=== PATIENT | male | born 1930 | race Caucasian/White ===

== ENCOUNTER 2017-05-27 05:31 | Emergency (ER) | payer MEDICARE ==
[2017-05-27] MEDS ORDERED: Ondansetron HCl/PF 4 MG/2 ML Vial ONE ×2 (06:10→09:43)
[2017-05-27 06:18] LABS: #Eosinphils 0.1 thou/uL (0.0-0.7); #Lymphocytes 1.2 thou/uL (1.20-3.40); #Monocytes 0.4 thou/uL (0.11-0.59); #Neutrophils 5.2 thou/uL (1.40-6.50); %Basophils 0.7 % (0.0-1.0); %Eosinophils 1.9 % (0.0-10.0); %Lymphocytes 16.6 % (21.0-51.0); %Monocytes 5.2 % (0.0-10.0); %Neutrophils 75.6 % (42.0-75.0); Hemoglobin 15.3 g/dL (14.0-18.0); Mean Corpuscular HGB CONC 33.4 g/dL (32.0-36.0); Mean Corpuscular Volume 95.8 fl (80.0-94.0); Mean Platelet Volume 6.3 fL (7.4-10.4); Platelet Count 218 thou/uL (130-400); RBC Distribution Width 12.3 % (11.5-14.5); Red Blood Cell (RBC) Count 4.78 mill/uL (4.70-6.10); White Blood Cell (WBC) Count 6.9 thou/uL (4.8-10.8)
[2017-05-27 06:31] LABS: ALT (SGPT) 13 U/L (8-55); AST (SGOT) 18 U/L (5-34); Albumin 4.2 g/dL (3.4-4.8); Alkaline Phosphatase 87 U/L (40-150); Anion Gap 16 mmol/L (10-20); BUN (Urea Nitrogen) 20 mg/dL (8.4-25.7); Bilirubin, Total 0.6 mg/dL (0.2-1.2); Calc. Creatinine Clearance 0 mL/min (70-130); Calcium 9.5 mg/dL (7.8-10.44); Carbon Dioxide 26 mmol/L (23-31); Chloride 103 mmol/L (98-107); Estimated GFR-MDRD 54; Globulin 3.1 g/dL (2.4-3.5); Glucose 141 mg/dL (83-110); Lipase 13 U/L (8-78); Potassium 4.5 mmol/L (3.5-5.1); Protein, Total 7.3 g/dL (5.8-8.1); Sodium 140 mmol/L (136-145)
[2017-05-27 06:39] LABS: Bilirubin Negative (Negative); Blood, Urine Trace (Negative); Clarity Clear (Clear); Glucose, Urine (Dipstick) Negative (Negative); Leukocyte Negative (Negative); Nitrite Negative (Negative); Protein, Urine (Dipstick) Trace mg/dL (Neg-Trace)
[2017-05-27 06:48] LABS: Bacteria/HPF 1+ HPF (None Seen); Oval Fat Bodies/HPF 1+ HPF (None Seen); RBC/HPF 0-3 HPF (0-3); Squamous Epithelial 0-3 HPF (0-3); WBC/HPF 0-3 HPF (0-3)
[2017-05-27] MEDS ORDERED: Lidocaine 1% 20 ML MDV ONE (09:30)
--- NOTE | 2017-05-27 12:20 | CT ---
CT ABDOMEN AND PELVIS WITHOUT CONTRAST: 05/27/2017 TECHNIQUE: A spiral CT of the abdomen and pelvis was done without IV contrast due to a low GFR. Oral contrast was used. Axial slices were acquired and then coronal reconstructions were done. FINDINGS: There are two masses seen in the left lower lobe, near the diaphragm. Each measures about 2.1 cm in size. There is also a small pleural based nodule seen at the lateral margin of the lower left fredrick thorax that is at or under 1 cm in size. There are no effusions. The liver, spleen, pancreas, and adrenal glands show no acute findings, within the limitations of th e noncontrast study. The aorta is calcified but shows no aneurysm. The right kidney is surgically absent. The remaining left kidney has a small lucency on its lower pole and another on its upper po le that are most likely small cysts. No renal calculi or obstruction was seen in the left kidney. The other major finding on this study is dilation of small bowel. Some loops are nearly 4 cm in pat meter. They are fluid-filled, and this mainly encompasses the mid small bowel. The patient has had a prior right colonic resection. The remaining colon is normal in size. No free air or free fluid was seen. CT of the pelvis shows some of the dilated loops of small bowel, but no pelvic mass or free fluid is seen. No inflammatory changes are present in the pelvis. A Arevalo catheter is seen in the urinary bladder. Regarding the bones, I saw no bony destructive lesions or sclerotic areas. 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 IMPRESSION: 1. Findings consistent with a mid small bowel obstruction. 2. Two masses present in the left lower lobe. Given the patient's history, metastatic disease seem s probable. There is also a small pleural nodule. 3. Other findings as listed above. Findings discussed with Dr. Jain at 0853 hours on 05/27/2017. CODE CR POS: [facility]
== END 2017-05-27 09:55 | disposition short-term general hospital (02) ==
LOC: BURERS 05:31
DX: K56.609 Unspecified intestinal obstruction, unspecified as to partial versus complete obstruction (principal); N50.89 Other specified disorders of the male genital organs; R91.8 Other nonspecific abnormal finding of lung field; Z85.528 Personal history of other malignant neoplasm of kidney; Z79.899 Other long term (current) drug therapy
CPT/HCPCS: 43752; 51702; 74176; 80053; 81003; 81015; 83690; 85025; 87086; 96361; 96374; 96375; 96376; J2001; J2270; J2405

== ENCOUNTER 2017-12-18 16:04 | Outpatient (CLI) | payer MEDICARE ==
--- NOTE | 2017-12-18 18:56 | RAD ---
RIGHT FOOT THREE VIEWS: 12/18/17 No fracture or area of bony destruction was seen. An opaque marker placed on plantar surface of the f oot beneath the second metatarsal neck shows no gross bony findings near it. There is no periosteal r eaction. IMPRESSION: No acute finding. POS: HOME
== END 2017-12-18 16:05 | disposition home or self-care (01) ==
LOC: BURRAD 16:04
PROVIDERS: ATTEND Podiatrist Foot & Ankle Surgery
DX: S90.851A Superficial foreign body, right foot, initial encounter (principal); M79.671 Pain in right foot

== ENCOUNTER 2019-09-17 22:44 | Emergency (ER) | payer MEDICARE ==
[~2019-09-17 22:44] MED LIST: Iopamidol 370 76% 125 ML VIAL FS ONE
[2019-09-17] MEDS ORDERED: Fentanyl 100 MCG/2 ML VIAL ONE (23:02)
[2019-09-17] MEDS ORDERED: Ondansetron PF 4 MG/2 ML Vial ONE (23:03)
[2019-09-17] MEDS ORDERED: Glycopyrrolate 0.4 MG/ 2 ML VIAL ONE (23:03)
[2019-09-17 23:09] LABS: #Basophils 0.1 thou/uL (0.0-0.2); #Eosinphils 0.2 thou/uL (0.0-0.7); #Lymphocytes 1.5 thou/uL (1.20-3.40); #Monocytes 0.4 thou/uL (0.11-0.59); #Neutrophils 3.9 thou/uL (1.40-6.50); %Eosinophils 2.6 % (0.0-10.0); %Lymphocytes 25.2 % (21.0-51.0); %Monocytes 6.8 % (0.0-10.0); %Neutrophils 64.4 % (42.0-75.0); Hemoglobin 17.7 g/dL (14.0-18.0); Mean Corpuscular Volume 90.5 fL (78.0-98.0); Mean Platelet Volume 5.8 fL (7.4-10.4); Platelet Count 302 thou/uL (130-400); RBC Distribution Width 13.4 % (11.5-14.5)
[2019-09-17 23:21] LABS: ALT (SGPT) 16 U/L (8-55); AST (SGOT) 16 U/L (5-34); Albumin 4.3 g/dL (3.4-4.8); Alkaline Phosphatase 101 U/L (40-110); Anion Gap 16 mmol/L (10-20); BUN (Urea Nitrogen) 21 mg/dL (8.4-25.7); Bilirubin, Total 0.4 mg/dL (0.2-1.2); Calc. Creatinine Clearance 0 mL/min (70-130); Calcium 9.8 mg/dL (7.8-10.44); Carbon Dioxide 26 mmol/L (23-31); Chloride 103 mmol/L (98-107); Estimated GFR-MDRD 55; Globulin 3.7 g/dL (2.4-3.5); Glucose 104 mg/dL (83-110); Lipase 17 U/L (8-78); Sodium 140 mmol/L (136-145)
[2019-09-17] MEDS ORDERED: Famotidine In NaCl 20 mg/50 ml Premix Bag ONE (23:38)
[2019-09-18] MEDS ORDERED: Piperacillin/Tazobactam 4.5 GM VIAL ONE (00:33)
[2019-09-18 01:04] LABS: Bilirubin Negative (Negative); Blood, Urine Negative (Negative); Clarity Clear (Clear); Glucose, Urine (Dipstick) Negative (Negative); Leukocyte Negative (Negative); Nitrite Negative (Negative); Protein, Urine (Dipstick) Negative (Neg-Trace)
--- NOTE | 2019-09-18 11:19 | CT ---
PRELIMINARY REPORT/[facility]/EMERGENCY AFTER HOURS PROCEDURE EXAM: CT Abdomen and Pelvis with Intravenous Contrast CLINICAL HISTORY: MID ABD PAIN TODAY, R/O BOWEL OBSTRUCTION TECHNIQUE: Axial computed tomography images of the abdomen and pelvis with intravenous contrast. CONTRAST: With; 70ml ISO 370 VIA RT. AC COMPARISON: None provided. FINDINGS: LUNG BASES: Lobular heterogeneous masses in the left lower lobe measuring 4.0 and 3.1 cm. Bibasilar subsegmental atelectasis. Myocardium Egli. Coronary artery disease. LIVER: Unremarkable. GALLBLADDER AND BILE DUCTS: Unremarkable. No calcified stone. No ductal dilation. PANCREAS: Unremarkable. SPLEEN: Unremarkable. ADRENAL GLANDS: Unremarkable. KIDNEYS, URETERS, AND BLADDER: 1.2 cm cyst at the upper pole of the left kidney. The right kidney is absent. No hydronephrosis or nephrolithiasis. No ureteral or bladder calculi. STOMACH AND BOWEL: Metallic clips adjacent to the distal esophagus. There are multiple dilated loops of small bowel measuring up to 3 cm in diameter. A transition point is not definitely identified. S utures are present in the mid abdomen associated with a partial colectomy. A rim-enhancing fluid col lection is present in the right hemiabdomen adjacent to small bowel loops measuring 2.1 x 1.6 cm, ser ies 2 image 32. APPENDIX: No CT evidence for appendicitis. PERITONEUM: No free fluid. No free air. LYMPH NODES: No lymphadenopathy. REPRODUCTIVE: The prostate gland is enlarged. The seminal vesicles are normal. VASCULATURE: No aortic aneurysm. Atherosclerosis. BONES: No fracture or suspicious osseous abnormality. Multilevel degenerative disc disease. 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 Fusion of the L4 and L5 vertebra. L4 and L5 laminectom ies. ABDOMINAL WALL AND SOFT TISSUES: Unremarkable. IMPRESSION: Multiple dilated loops of small bowel concerning for a small bowel obstruction. The farfan sition point is not identified. Rim-enhancing fluid collection in the right hemiabdomen adjacent to t he small bowel loops concerning for a small bowel obstruction. The right kidney is surgically absent. Heterogeneously enhancing lobular masses in the left lower lobe concerning for metastatic disease. ELECTRONICALLY SIGNED BY: Yariel Hay MD Sep 18, 2019 12:16:41 AM ASSIST[employer] FINAL REPORT CT ABDOMEN AND PELVIS PERFORMED WITH CONTRAST ENHANCEMENT: HISTORY: Abdominal distention. COMPARISON: A 05/17/2017 exam. FINDINGS: There has been a significant increase in size of the 2 left lower lobe pulmonary nodules as compared to that prior examination, one measuring 4.2 cm and the other 2.9 cm in size as compared to the large r lesion having measured 2 cm on the prior examination and similar measurement of the smaller lesion. There is atelectatic change in the right lung base. The liver, spleen, and pancreas regions appear unremarkable. The gallbladder is somewhat contracted. This was described as an area of rim-enhancing fluid collection, but in reviewing the position of t he gallbladder on the previous examination, I think this just represents a slightly contracted gallbl adder. Right kidney is absent. The right and left adrenal glands are normal in appearance. The left kidney is normal size. Two small lower pole left renal cysts are identified. No significant periaortic or mesenteric adenopathy. The patient has undergone a right hemicolectomy. Anastomosis appears to be at mid transverse colon l evel. There is evidence of a small bowel obstruction with moderately dilated small bowel loops. Thi s is unusual and it appears to be more of the distal small bowel. The proximal small bowel is nondil ated. The jejunum and proximal ileum is actually deep within the pelvis and these are nondilated bow el loops. Perhaps an area of transition in the right lower quadrant and another area of possible tra nsition near the anastomosis. This probably represents adhesions which are causing the dilated more distal small bowel loops. I am not certain how much of this may be chronic baseline change for this patient. There is no pneumatosis present. NO free fluid. There is a left inguinal hernia which con tains colon but does not appear to be the etiology for the small bowel obstruction. Review of osseous structures did not show any lytic or blastic bony change. IMPRESSION: 1. Postop right nephrectomy change. 2. Post right hemicolectomy with anastomosis at what appears to be mid transverse colon level. 3. Dilated small bowel loops. The pattern is unusual in that the proximal small bowel is nondilated . There may be transition areas in the right lower quadrant and in the mid abdomen near the anastomo tic suture line causing this more distal dilatation of the small bowel loops. I am not certain how m uch of this may just be chronic baseline change in this patient. 4. Interval enlargement of 2 necrotic-appearing masses within the left lower lobe very concerning fo r metastatic disease. 5. Left inguinal hernia containing colon but not the source of the patient's obstruction. 6. This report is in basic agreement with the report issued by [facility]. POS: [facility]
== END 2019-09-18 01:00 | disposition short-term general hospital (02) ==
LOC: BURERS 22:44
DX: K56.609 Unspecified intestinal obstruction, unspecified as to partial versus complete obstruction (principal); Z79.899 Other long term (current) drug therapy
CPT/HCPCS: 74177; 80053; 80307; 81003; 83690; 84484; 85025; 93005; 96361; 96374; 96375; J2405; J2543; J3010; Q9967

== ENCOUNTER 2020-03-07 06:11 | Emergency (ER) | payer MEDICARE ==
[2020-03-07] MEDS ORDERED: Fentanyl 100 MCG/2 ML VIAL ONE ×2 (06:29→07:57)
[2020-03-07] MEDS ORDERED: Ondansetron PF 4 MG/2 ML Vial ONE ×2 (06:29→08:15)
[2020-03-07 06:53] LABS: #Basophils 0.1 thou/uL (0.0-0.2); #Eosinphils 0.1 thou/uL (0.0-0.7); #Lymphocytes 1.4 thou/uL (1.20-3.40); #Monocytes 0.5 thou/uL (0.11-0.59); #Neutrophils 8.6 thou/uL (1.40-6.50); %Basophils 0.5 % (0.0-1.0); %Lymphocytes 12.8 % (21.0-51.0); %Monocytes 5.1 % (0.0-10.0); %Neutrophils 80.6 % (42.0-75.0); Anisocytosis SLIGHT = 6-15 cells (100X) (0-5/hpf); Hemoglobin 17.4 g/dL (14.0-18.0); Hypochromia SLIGHT = 6-15 cells (100X) (0-5/hpf); MDiff Complete? YES; Mean Corpuscular HGB CONC 29.3 g/dL (32.0-36.0); Mean Corpuscular Hemoglobin 26.2 pg (27.0-31.0); Mean Corpuscular Volume 89.4 fL (78.0-98.0); Mean Platelet Volume 5.6 fL (7.4-10.4); Platelet Count 368 thou/uL (130-400); Platelet Morphology Comment Appears Adequate; RBC Distribution Width 14.8 % (11.5-14.5); Red Blood Cell (RBC) Count 6.65 mill/uL (4.70-6.10); Small Platelets SLIGHT; White Blood Cell (WBC) Count 10.7 thou/uL (4.8-10.8)
[2020-03-07 06:56] LABS: ALT (SGPT) 15 U/L (8-55); AST (SGOT) 17 U/L (5-34); Albumin 4.2 g/dL (3.4-4.8); Alkaline Phosphatase 101 U/L (40-110); Anion Gap 19 mmol/L (10-20); BUN (Urea Nitrogen) 20 mg/dL (8.4-25.7); Bilirubin, Total 0.4 mg/dL (0.2-1.2); Calc. Creatinine Clearance 0 mL/min (70-130); Calcium 10.2 mg/dL (7.8-10.44); Carbon Dioxide 22 mmol/L (23-31); Chloride 101 mmol/L (98-107); Estimated GFR-MDRD 67; Globulin 4.2 g/dL (2.4-3.5); Glucose 165 mg/dL (83-110); Lipase 11 U/L (8-78); Potassium 4.6 mmol/L (3.5-5.1); Protein, Total 8.4 g/dL (5.8-8.1); Sodium 137 mmol/L (136-145)
[2020-03-07] MEDS ORDERED: Azithromycin 500 MG VIAL ONE (07:53)
[2020-03-07] MEDS ORDERED: cefTRIAXone\\ROCEPHIN 2 GM VIAL ONE (07:53)
[2020-03-07] MEDS ORDERED: Sodium Chloride 0.9% 200 ML ONE (07:54)
[2020-03-07 07:59] LABS: Bilirubin Negative (Negative); Blood, Urine Negative (Negative); Clarity Clear (Clear); Glucose, Urine (Dipstick) Negative (Negative); Ketone, Urine Negative (Negative); Leukocyte Negative (Negative); Nitrite Negative (Negative); Protein, Urine (Dipstick) Trace mg/dL (Neg-Trace); Specific Gravity, Urine 1.015 (1.005-1.030); pH, Urine 6.5 (5.0-9.0)
--- NOTE | 2020-03-07 08:13 | RAD ---
PORTABLE CHEST: DATE: 03/07/2020. FINDINGS: Comparison is made with a prior chest film of 08/24/2014. Additionally, I reviewed a 09/17/2019 CT of t he abdomen that showed masses in the left lower lobe that had increased in size over time. Today's exam shows the new appearance of nodules in the upper lobes. There is a new 4 cm nodule in t he right upper lobe and a new 2 cm nodule in the left upper lobe apex. There are some vague hazy are as in the left base which might be nodules, but these are less well defined on this portable film. T here are no large effusions. The heart size is normal. Calcification in the aortic arch is present as usual. Haziness in the left lower lobe is probably a combination of nodules and possibly infiltra te. IMPRESSION: 1. New appearance of upper lobe nodules since the 2014 study. 2. Hazy in the left base, probably a combination of nodules and possibly infiltrate. POS: HOME
[2020-03-07] MEDS ORDERED: Morphine 4 MG/ML VIAL ONE (09:22)
[2020-03-07] MEDS ORDERED: Iopamidol 370 76% 100 ML VIAL ONE (11:44)
--- NOTE | 2020-03-07 18:38 | CT ---
CT ABDOMEN AND PELVIS WITH CONTRAST: 03/07/[address] of the abdomen and pelvis was performed for evaluation of abdominal pain with nausea and vo miting. Comparison was made with a prior CT dated 05/27/17 and one dated 09/17/19. The lung bases show bibasilar streaking which may be atelectasis or scarring. The patient has known l ower lobe masses but these are not visible as these scans do not go very far up into the lungs. The l iver, spleen, pancreas, adrenal glands, and abdominal aorta showed no acute findings. No right kidney is seen. The left kidney shows a cyst in its upper pole but no sign of obstruction. The major finding on the study is multiple dilated loops of small bowel, some as wide as 3.7 cm, cons istent with a distal small bowel obstruction. The patient has had prior surgery which I believe as a partial colectomy. No free air or free fluid was detected. CT of the pelvis shows the dilated loops of small bowel and an enlarged prostate. I see no free fluid or inflammatory change. 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 No bony destructive lesions were detected. IMPRESSION: Distal small bowel obstruction. Findings discussed with Dr. Gresham at 0803 on 03/07/20. POS: HOME
== END 2020-03-07 09:41 | disposition short-term general hospital (02) ==
LOC: BURERS 06:11
DX: K56.609 Unspecified intestinal obstruction, unspecified as to partial versus complete obstruction (principal); R91.8 Other nonspecific abnormal finding of lung field; J18.9 Pneumonia, unspecified organism; Z79.899 Other long term (current) drug therapy
CPT/HCPCS: 36415; 71045; 74177; 80053; 81003; 83605; 83690; 84484; 85025; 87040; 87077; 87086; 87149; 93005; 96361; 96365; 96367; 96375; 96376; J0456; J0696; J2270; J2405; J3010; J3490; Q9967

== ENCOUNTER 2020-05-16 16:11 | Outpatient (CLI) | payer MEDICARE ==
--- NOTE | 2020-05-16 20:13 | RAD ---
LEFT RIBS WITH PA CHEST: 05/16/20 Comparison is made with a chest film of 03/07/20. The heart is normal in size. Arteriosclerotic change is seen in the aorta. Multiple pulmonary masses are present as before. The sizes do not seem markedly different than the previous exam. There is a li ttle blunting of the left costophrenic angle so there may be a tiny amount of fluid here. No pneumoth orax was seen. No new infiltrates were appreciated. Regarding the ribs, some old healed fractures are seen in the lower left ribs. There as one view wher e there was an equivocal line present in the left 9th rib posterolaterally. Unfortunately, this area is not seen optimally. The films of the lower most ribs was actually shot on the right side and misla beled, so the area I need to see well not displayed. IMPRESSION: 1. Equivocal line in the left 9th rib posterolaterally. Correlate with clinical exam and history . 2. Multiple pulmonary masses, substantially unchanged from February. Code T POS: HOME
== END 2020-05-16 16:12 | disposition home or self-care (01) ==
LOC: BURRAD 16:11
PROVIDERS: ATTEND Family Medicine
DX: R07.81 Pleurodynia (principal); R91.8 Other nonspecific abnormal finding of lung field

== ENCOUNTER 2020-10-11 13:19 | Emergency (ER) | payer MEDICARE ==
[~2020-10-11 13:19] MED LIST changes: +Iopamidol 370 76% 100 ML VIAL ONE; -Iopamidol 370 76% 125 ML VIAL FS ONE
[2020-10-11 14:22] LABS: #Eosinphils 0.1 thou/uL (0.0-0.7); #Lymphocytes 1.2 thou/uL (1.20-3.40); #Monocytes 0.5 thou/uL (0.11-0.59); #Neutrophils 4.3 thou/uL (1.40-6.50); %Basophils 0.6 % (0.0-1.0); %Eosinophils 2.1 % (0.0-10.0); %Lymphocytes 19.2 % (21.0-51.0); %Monocytes 8.2 % (0.0-10.0); %Neutrophils 69.9 % (42.0-75.0); Hemoglobin 16.1 g/dL (14.0-18.0); Mean Corpuscular Volume 80.2 fL (78.0-98.0); Mean Platelet Volume 5.4 fL (7.4-10.4); Platelet Count 400 thou/uL (130-400); RBC Distribution Width 17.2 % (11.5-14.5); White Blood Cell (WBC) Count 6.2 thou/uL (4.8-10.8)
[2020-10-11 14:24] LABS: MDiff Complete? YES
[2020-10-11 14:35] LABS: ALT (SGPT) 15 U/L (8-55); AST (SGOT) 15 U/L (5-34); Albumin 3.4 g/dL (3.4-4.8); Alkaline Phosphatase 87 U/L (40-110); Anion Gap 16 mmol/L (10-20); BUN (Urea Nitrogen) 21 mg/dL (8.4-25.7); Bilirubin, Total 0.5 mg/dL (0.2-1.2); Calc. Creatinine Clearance 0 mL/min (70-130); Calcium 9.8 mg/dL (7.8-10.44); Carbon Dioxide 24 mmol/L (23-31); Chloride 102 mmol/L (98-107); Glucose 118 mg/dL (83-110); Potassium 4.6 mmol/L (3.5-5.1); Protein, Total 7.4 g/dL (5.8-8.1); Sodium 137 mmol/L (136-145)
[2020-10-11 15:09] LABS: Bilirubin Negative (Negative); Blood, Urine Negative (Negative); Clarity Clear (Clear); Glucose, Urine (Dipstick) Negative (Negative); Ketone, Urine Negative (Negative); Leukocyte Negative (Negative); Nitrite Negative (Negative); Protein, Urine (Dipstick) Negative (Neg-Trace); Specific Gravity, Urine 1.025 (1.005-1.030); pH, Urine 6.5 (5.0-9.0)
--- NOTE | 2020-10-11 15:22 | CT ---
CT OF THE BRAIN WITHOUT CONTRAST: DATE: 10/11/2020. COMPARISON: No prior films were available for comparison. FINDINGS: The ventricles are fairly large. Although there is severe atrophy, they are even a bit larger than e xpected. Periventricular hyperlucency and deep white matter lucency suggests chronic microvascular i schemic change. There were no findings of acute stroke, mass, or edema. No intracranial bleeding or extraaxial hematoma was seen. The skull appeared intact. An incidental finding was mucosal thicken ing in the right side of the sphenoid sinus. Some soft tissue swelling is suggested over the forehea d, but the underlying bone appears intact. IMPRESSION: 1. Atrophy and large ventricles. 2. No evidence of bleeding or stroke. 3. Mucosal thickening in the right side of the sphenoid sinus. Report called to Dr. Billy at 1425 on 10/11/2020. CODE CR POS: HOME
--- NOTE | 2020-10-11 15:34 | RAD ---
PORTABLE CHEST: DATE: 10/11/2020. FINDINGS: An AP portable film at 1431 is compared with a 05/16/2020 study. Pulmonary masses are seen as before. I do not see any new ones. The existing masses are slightly larger. The mass in the left lower lo be measures 7.1 cm (6.4 cm before). The major mass in the right upper lobe measures 4.3 cm (4.0 cm b efore). The mass in the left apex is partially obscured by overlapping ribs and is difficult to nichelle ure accurately. It may be slightly larger. The heart seems perhaps upper normal in size before and may be a little larger than previously. There is no vascular congestion or edema. Calcification is seen in the aortic arch as usual. IMPRESSION: Multiple pulmonary masses which have increased in size slightly over the interval. No new ones were appreciated. POS: HOME
--- NOTE | 2020-10-11 20:08 | CT ---
CT OF THE CHEST WITH CONTRAST 10/11/20 Comparison is made with the 03/07/20 study. The patient has known pulmonary masses. In the interval, all masses have increased in size. Most are at least 0.5 cm larger and one in the ri ght upper lobe is about 1 cm larger. The total number of masses is about the same, just each one has enlarged over the interval. There is no sign of a focal pneumonia. Some dependent atelectasis is pres ent. A small effusions is suggested on the left. There is some mild enlargement of some of the media stinal nodes, but this is not a prominent finding. No significant amount of pericardial effusion was seen. There is no aortic aneurysm or sign of dissection. Scans in the upper abdomen shows a small hyperdense rim enhancing mass in the medial right lobe of th e liver. I do not see this on any of the prior studies. Although the contrast pattern could make it potentially a hemangioma, given no evidence of it on prior scans and the patient's known lung masses, a metastatic focus seems more likely. This was the only definite abnormality appreciated in the visi ble portions of the liver. There is a cyst in the upper pole of the left kidney. The spleen is normal in size. IMPRESSION: 1. Multiple pulmonary masses as before, each of which have increased in size somewhat over the i nterval. The larger masses in the left lower lobe. Many are centrally low density so this may be cent ral necrosis. There is also very small left pleural effusion. 2. 2.3 cm hyperdense mass in the medial right lobe of the liver. The possibility of a small hype rvascular metastasis is raised. Preliminary findings discussed with Dr. Billy at 1530 on 10/11/20. POS: HOME
== END 2020-10-11 16:00 | disposition home or self-care (01) ==
LOC: BURERS 13:19
DX: C80.1 Malignant (primary) neoplasm, unspecified (principal); C79.00 Secondary malignant neoplasm of unspecified kidney and renal pelvis
CPT/HCPCS: 36415; 70450; 71045; 71260; 80053; 81003; 84484; 85025; 93005; 94760; Q9967